=== PATIENT | female | born 1935 | race Caucasian/White ===

== ENCOUNTER 2017-02-06 15:20 | Observation (INO) | payer OTHER ==
[~2017-02-06] VITALS: Ht 152.4 cm; Wt 86.3 kg
[~2017-02-06 15:20] MED LIST: ATIVAN1 MG PO; CIPRO500 MG PO; CRESTOR10 MG PO; Colace PO; DAILY VALUE1 EACH PO; FLAGYL500 MG PO; Flagyl PO; Levaquin PO; MULTIVITAMIN1 EAC2 PO; PROBIOTIC OTC PO; PROBIOTIC1 EAC1 PO; TYLENOL EXTRA500 MG PO; Ultram PO; ZIAC 2.5/6.251 TAB PO; ZIAC 5/6.251 TABLET PO; ZYRTEC10 M2 PO; ZYRTEC10 M3 PO; Ziac 2.5/6.25 PO; calcium; fish oil
[2017-02-06 16:09] LABS: HEMATOCRIT 37.7 % (36.0-46.0); MCH 30.7 PG (29.0-34.0); MCHC 32.9 G/DL (30.0-36.0); MCV 93.3 FL (83-99); MEAN PLAT.VOLUME 9.5 uM^3 (9.5-12.4); PLATELET COUNT 232 K/uL (156-360); RBC DIS.WIDTH-CV 12.4 % (11.8-14.6); RBC DIS.WIDTH-SD 42.9 % (39-53); RED BLOOD COUNT 4.04 M/uL (3.80-5.20)
[2017-02-06 16:19] LABS: CHLORIDE 109 mEq/L (99-109); POTASSIUM 4.1 mEq/L (3.7-5.4); SODIUM 142 mEq/L (136-147)
[2017-02-06 16:21] LABS: GLUCOSE 100 mg/dL (70-99)
[2017-02-06 16:22] LABS: ANION GAP 8 MEQ/L (2-14)
[2017-02-06 16:25] LABS: GFR ESTIMATE (CALCULATED) > 59 mL/min/; UREA NITROGEN (BUN) 24 mg/dL (9-23)
[2017-02-06 17:22] LABS: ADD MIUA? YES; BILIRUBIN NEGATIVE; BLOOD NEGATIVE; COLOR STRAW ((YELLOW)); GLUCOSE (STRIP) NEGATIVE; KETONES NEGATIVE; LEUKOCYTES SMALL; NITRITE NEGATIVE; PROTEIN (STRIP) NEGATIVE; UROBILINOGEN 0.2 MG/DL (0.2-1.0)
[2017-02-06 17:28] LABS: BACTERIA NONE SEEN /HPF; EPITHELIAL CELLS RARE /HPF; MUCUS TRACE /LPF; RED BLOOD CELLS 0-5 /HPF (0-5); WHITE BLOOD CELLS 0-5 /HPF (0-5)
[2017-02-06] MEDS ORDERED: BISOPROLOL FUMAR5 MG PO (19:32)
[2017-02-06] MEDS ORDERED: VITAMIN D31000 UNI2 PO (19:33)
[2017-02-06] MEDS ORDERED: MICROZIDE12.5 M1 PO (19:33)
[2017-02-06] MEDS ORDERED: NYSTOP60 GM TP (19:33)
[2017-02-06] MEDS ORDERED: BIOTIN5 MG PO (19:34)
[2017-02-06] MEDS ORDERED: MELATONIN5 M1 PO (19:34)
[2017-02-06 20:39] LABS: Estimated Average Glucose 134 mg/dL (70-123); HEMOGLOBIN A1c (GLYCOHEMOGLOB) 6.3 % HGB (Below 5.7)
[2017-02-06 20:50] LABS: HDL CHOLESTEROL 65 MG/DL (Desirable>=50); LDL CHOLESTEROL 63 mg/dL (Desirable<100); NON-HDL CHOLESTEROL 92 mg/dL (Desirable<160); TOTAL CHOLESTEROL 157 mg/dL (Desirable<200); TRIGLYCERIDES 143 MG/DL (Normal: <150)
[2017-02-06 22:12] VITALS: BP 138/64
[2017-02-06 22:17] LABS: ALKALINE PHOSPHATASE 51 IU/L (3-129); DIRECT BILIRUBIN 0.1 mg/dL (0.0-0.3); TOTAL BILIRUBIN 0.4 MG/DL (0.0-1.0)
[2017-02-06 22:34] LABS: POINT-OF-CARE METER ID UU14188625
[2017-02-07 03:38] VITALS: BP 142/66
[2017-02-07 07:07] LABS: POINT-OF-CARE METER ID UU14188625
[2017-02-07 07:14] VITALS: BP 146/67
[2017-02-07 11:21] LABS: POINT-OF-CARE METER ID UU14188625
[2017-02-07 11:22] VITALS: BP 142/64
== END 2017-02-07 15:41 | disposition home or self-care (01) ==
LOC: EME 15:20 → 5SOUTH 19:21 → EDOF 19:21 → ENRESERV 19:23 → 5SOUTH 21:14
PROVIDERS: Emergency Medicine; Hospitalist
DX: R42 Dizziness and giddiness (principal); R26.0 Ataxic gait; H53.2 Diplopia; I67.89 Other cerebrovascular disease; I10 Essential (primary) hypertension; E78.5 Hyperlipidemia, unspecified; M19.90 Unspecified osteoarthritis, unspecified site; K21.9 Gastro-esophageal reflux disease without esophagitis; R73.03 Prediabetes; K58.9 Irritable bowel syndrome, unspecified; Z87.19 Personal history of other diseases of the digestive system; Z90.49 Acquired absence of other specified parts of digestive tract; R00.1 Bradycardia, unspecified; Z80.0 Family history of malignant neoplasm of digestive organs; Z82.49 Family history of ischemic heart disease and other diseases of the circulatory system; Z84.1 Family history of disorders of kidney and ureter; Z80.6 Family history of leukemia; Z88.0 Allergy status to penicillin; Z88.5 Allergy status to narcotic agent; Z88.8 Allergy status to other drugs, medicaments and biological substances; Z88.6 Allergy status to analgesic agent
CPT/HCPCS: 70450; 70551; 71020; 80048; 80061; 80076; 81003; 82948; 83036; 85027; 93005; 93880; 99281; 99285; G0378; J1650; J7030